=== PATIENT | male | born 1980 | race Caucasian/White ===

== ENCOUNTER 2024-11-18 06:51 | Day surgery (SDC) | payer OTHER ==
[~2024-11-18] VITALS: Ht 175.3 cm; Wt 111.4 kg
[~2024-11-18 06:51] MED LIST: SODIUM CHLORIDE 0.9% 1,000 ML ONE
[2024-11-18] MEDS: SODIUM CHLORIDE 0.9% 1,000 ML IV ONE (07:52)
[2024-11-18 08:11] LABS: GLUCOMETER DEV NAME(LOC) SDS.; GLUCOSE,POINT OF CARE 172 MG/DL (70-110)
[2024-11-18] MEDS ORDERED: NIFE-129 PO (08:13)
[2024-11-18] MEDS ORDERED: SERT-158 PO (08:13)
[2024-11-18] MEDS ORDERED: FAMO20 PO (08:13)
[2024-11-18] MEDS ORDERED: DULA0.75 SQ (08:13)
[2024-11-18] MEDS ORDERED: INSNOV SQ (08:13)
[2024-11-18] MEDS ORDERED: CYAN500T77 PO (08:13)
[2024-11-18] MEDS ORDERED: TRAZ-257 PO (08:13)
[2024-11-18] MEDS ORDERED: ASPI-1450 PO (08:13)
[2024-11-18] MEDS ORDERED: MULT-1297 PO (08:13)
[2024-11-18] MEDS ORDERED: LOSA-382 PO (08:13)
[2024-11-18] MEDS ORDERED: ROSU10TA72 PO (08:13)
[2024-11-18] MEDS ORDERED: LORA0.5T20 PO (08:13)
[2024-11-18] MEDS ORDERED: INSU100C6 (08:13)
[2024-11-18] MEDS ORDERED: METO50 PO (08:13)
[2024-11-18] MEDS ORDERED: METF-1211 PO (08:13)
[2024-11-18] MEDS ORDERED: EVOL140P3 SQ (08:13)
[2024-11-18] MEDS ORDERED: NITR0.4T50 SL (08:13)
[2024-11-18] MEDS ORDERED: FentaNYL CITRATE PF 100 MCG/2 ML VIAL ONE (08:21)
[2024-11-18] MEDS ORDERED: MIDAZOLAM HCL 2 MG/2 ML VIAL ONE (08:21)
[2024-11-18 09:50] VITALS: PULSE 98; RESP 18; O2SAT 100
[2024-11-18] MEDS ORDERED: MethylPREDNISolone SOD SUCC 125 MG/2 ML VIAL ONE (10:04)
[2024-11-18] MEDS: MethylPREDNISolone SOD SUCC 125 MG/2 ML VIAL IVP ONE (10:18)
[2024-11-18] MEDS ORDERED: LIDOCAINE 4% 50 ML SOLUTION ONE (12:00)
[2024-11-18] MEDS ORDERED: ALBUTEROL SULFATE 2.5 MG/0.5 ML NEB SOLUTION NEB ONE (12:00)
[2024-11-18] MEDS ORDERED: LIDOCAINE 2% 11 ML JELLY ONE (12:00)
[2024-11-18] MEDS ORDERED: BENZOCAINE 20% 50 MCG/SPRAY 57 GM ONE (12:00)
== END 2024-11-18 11:50 | disposition home or self-care (01) ==
LOC: SURGERY 06:51
PROVIDERS: ATTEND Internal Medicine Critical Care Medicine
DX: J38.4 Edema of larynx (principal); B37.0 Candidal stomatitis; I25.2 Old myocardial infarction; I10 Essential (primary) hypertension; E11.9 Type 2 diabetes mellitus without complications; E78.00 Pure hypercholesterolemia, unspecified; Z79.82 Long term (current) use of aspirin; Z72.89 Other problems related to lifestyle; Z95.5 Presence of coronary angioplasty implant and graft; Z79.4 Long term (current) use of insulin
CPT/HCPCS: 31623; 82962; 87206; 87101; 87220; 87070; 88108; 31624; 94640; 71045; 87015; J3010; J2250; J2919; J7030; J7613; Z7610